=== PATIENT | male | born 1960 | race Caucasian/White ===

== ENCOUNTER 2021-08-19 01:18 | Day surgery (SDC) | payer BC, SELFPAY ==
[2021-08-05 15:58] VITALS: BMI 37.8
--- NOTE | 2021-08-17 09:59 | PM.HPGS ---
History of Present Illness History of Present Illness Consent: Risks, benefits, and alternatives have been discussed and questions answered. Patient agrees to proceed with procedure. Chief complaint: hx of colon polyps Narrative: Pablito Gonsalez is a 60 year old male referred for colon cancer screening. He has had polyps removed in the past, most recently about 6 years ago Review of Systems Review of Systems: All systems reviewed & are unremarkable except as noted in HPI and below PMFSH Past Medical History Medical History High cholesterol Hyperlipidemia Hypertension Hypogonadism BRIAN (obstructive sleep apnea) Polycythemia Family History Family History Father Family history of atrial fibrillation Coronary artery disease Skin cancer Social History Social History Smoking status: Never smoker Alcohol intake: current Drinks per week: 1 Substance use: never Substance use type: does not use Living arrangements: with family Spiritual care concerns: No Meds Home Medications and Allergies Home Medications Medication Instructions Recorded Confirmed Type lliwuswaecix-zocextng-bypchg tablet 1 tablet PO DAILY 10/06/19 08/05/21 History lisinopril 20 mg tablet 20 mg PO DAILY #90 tablet 07/01/21 08/05/21 Rx atorvastatin 40 mg tablet See Rx Instructions .ROUTE 07/12/21 08/05/21 Rx .COMPLEX #90 tablet aspirin [Adult Low Dose Aspirin] 81 mg PO DAILY 08/05/21 08/05/21 History cyclobenzaprine 10 mg PO DAILY PRN 08/05/21 08/05/21 History Allergies Allergy/AdvReac Type Severity Reaction Status Date / Time levofloxacin [From Levaquin] Allergy Intermediate joint Verified 08/19/21 09:22 stiffness Exam Const: General: alert Orientation/consciousness: patient oriented x3 Resp: Auscultation: clear to auscultation bilaterally Cardio: Rhythm: regular rhythm GI: GI Palp: Yes Soft to palpation and No Tenderness to palpation present (GI) Neuro: General: patient oriented x3 Assessment and Plan Assessment and plan (1) Screening for colon cancer: Code(s): Z12.11 - Encounter for screening for malignant neoplasm of colon Status: Acute Assessment and Plan: Colonoscopy with possible biopsy or polypectomy or cautery or injection of substances.
--- NOTE | 2021-08-19 07:15 | P.PNAN_ITS ---
Anes - Initial Pre Proc Eval Procedure: Operation Date: 08/19/21 10:45 Proposed Procedures p Screening Colonoscopy - Hong Antonio MD Date/Time: 08/19/21 07:15 Surgeon: Hong Antonio MD Pre Op Diagnosis: hx of colon polyps Patient Data Age: 60 Gender: M Height: 1.75 m Weight: 116 kg Allergies Allergy/AdvReac Type Severity Reaction Status Date / Time levofloxacin [From Levaquin] Allergy Intermediate joint Verified 08/19/21 09:22 stiffness Home Medications Medication Instructions Recorded Confirmed Type hpbsnbfchkmp-tfomodnv-sqfwdo tablet 1 tablet PO DAILY 10/06/19 08/05/21 History lisinopril 20 mg tablet 20 mg PO DAILY #90 tablet 07/01/21 08/05/21 Rx atorvastatin 40 mg tablet See Rx Instructions .ROUTE 07/12/21 08/05/21 Rx .COMPLEX #90 tablet aspirin [Adult Low Dose Aspirin] 81 mg PO DAILY 08/05/21 08/05/21 History cyclobenzaprine 10 mg PO DAILY PRN 08/05/21 08/05/21 History Patient hx anesthesia problems: none Family hx anesthesia problems: none Results Review: All pre-operative results and documents have been reviewed as part of the pre-operative evaluation. [facility] Past Medical History Medical History (Updated 08/19/21 @ 07:15 by Олег Teague DO) High cholesterol Hyperlipidemia Hypertension Hypogonadism BRIAN (obstructive sleep apnea) Polycythemia Family History Family History Father Family history of atrial fibrillation Coronary artery disease Skin cancer Social History Social History Smoking status: Never smoker Alcohol intake: current Drinks per week: 1 Substance use: never Substance use type: does not use Living arrangements: with family Spiritual care concerns: No Anes - Eval Final PreProcedure Day of Procedure 08/19/21 07:15 Patient weight: obese Heart: regular rate and rhythm Lungs: clear to auscultation and normal air movement Airway: Mallampati scale class II Neurological: alert and oriented Last oral intake: >/= 8 hours ASA classification: III Emergent: no Anesthetic plan: proceed Anesthesia type and monitoring: general GIVS and standard monitoring Results Review: All pre-operative results and documents have been reviewed as part of the pre-operative evaluation. Informed Consent: The patient's anesthetic plan and its attendant risks and benefits were discussed with the patient/family/POA. Questions were solicited and answers provided to the satisfaction of the patient/family/POA.
[2021-08-19 09:25] VITALS: BP 120/85; PULSE 86; RESP 20; TEMP 36.2; O2SAT 100
[2021-08-19] MEDS: LACTATED RINGERS 1,000 ML 150 ML IV CONT (09:37)
[2021-08-19 10:24] VITALS: BP 98/70; PULSE 85; RESP 20; O2SAT 96
[2021-08-19 10:34] VITALS: BP 112/75; PULSE 78; RESP 20; O2SAT 100
[2021-08-19 10:44] VITALS: BP 114/77; PULSE 80; RESP 20; O2SAT 99
== END 2021-08-19 10:49 | disposition home or self-care (01) ==
PROVIDERS: PCP Internal Medicine; Visit Provider Internal Medicine Gastroenterology
PROC: 0DJD8ZZ Inspection of Lower Intestinal Tract, Via Natural or Artificial Opening Endoscopic (ICD-10-PCS; CPT 45378; principal; 2021-08-19 10:45)
DX: Z12.11 Encounter for screening for malignant neoplasm of colon (principal); Z86.010 Personal history of colon polyps; I10 Essential (primary) hypertension; E78.5 Hyperlipidemia, unspecified; G47.33 Obstructive sleep apnea (adult) (pediatric); E66.9 Obesity, unspecified; Z68.36 Body mass index [BMI] 36.0-36.9, adult
CPT/HCPCS: 45378; J2704; J7120

== ENCOUNTER 2021-10-31 09:25 | Outpatient (CLI) | payer BC, SELFPAY ==
--- NOTE | ~2021-10-31 | US_ITS ---
EXAMINATION: US carotid duplex BI DATE: 10/31/2021 10:22 INDICATION: Dizziness TECHNIQUE: Grayscale, color Doppler, and pulsed Doppler images of the cervical carotid arteries were obtained. The degree of vessel stenosis is placed in one of the following categories: normal, <50%, 5 0-69%, >=70% but less than near-occlusion, near-occlusion, or total occlusion. Note that percent sten osis relative to normal distal artery lumen diameter is indirectly measured from velocity measurement s as described by Moshe, et al. Radiology 2003; [id number]. Notes: Normal: Peak systolic velocity <125 centimeters/sec and no plaque <50%. Peak systolic velocity <125 ( EDV <40; ICA/CCA PSV ratio <2.0; used these factors only a tandem lesions or low cardiac output or co ntralateral disease) 50-69 %: PSV 125-230 (EDV 40-100; ratio 2-4) >= 70% but less than near occlusion: PSV greater than 230 (EDV > 100; ratio> 4.0) Near Occlusion: PSV that is variable; markedly narrowed lumen Occlusion: Absent flow on color/spectral Doppler and no lumen on helton scale. COMPARISON: None. FINDINGS: RIGHT: The right common carotid artery (CCA) peak systolic velocity (PSV) is 109 cm/s. The right internal ca rotid artery (ICA) PSV is 125 cm/s. The right ICA end-diastolic velocity (EDV) is 37 cm/s. The right ICA/CCA PSV ratio is 1.1. The external carotid artery (ECA) PSV is 146 cm/s. There is antegrade flow in the right vertebral artery. LEFT: The left CCA PSV is 140 cm/s. The left ICA PSV is 135 cm/s. The left ICA EDV is 37 cm/s. The left ICA /CCA PSV ratio is 1.0. The ECA PSV is 140 cm/s. There is antegrade flow in the left vertebral artery . IMPRESSION: 1. Less than 50% stenosis in the right internal carotid artery by sonographic criteria. 2. 50-69% stenosis in the left internal carotid artery by sonographic criteria. Reviewed, dictated and finalized at location A. IMPRESSION: 1. Less than 50% stenosis in the right internal carotid artery by sonographic c riteria. 2. 50-69% stenosis in the left internal carotid artery by sonographic criteria.
== END 2021-10-31 09:26 | disposition home or self-care (01) ==
PROVIDERS: PCP Internal Medicine; Visit Provider Internal Medicine Cardiovascular Disease
DX: R42 Dizziness and giddiness (principal); I65.23 Occlusion and stenosis of bilateral carotid arteries
CPT/HCPCS: 93880